=== PATIENT | female | born 1955 | race Hispanic/Latino ===

== ENCOUNTER 2016-08-07 15:04 | Inpatient (IN) | payer MEDICAID ==
[2016-08-07 15:04] VITALS: BMI 27.4
--- NOTE | 2016-08-07 16:36 | C.PDOC ---
History Of Present Illness Patient is a 60 y/o female, with Hx of dizziness, that presents to the ED for evaluation s/p fall. Patient states that she felt dizzy while walking to the bathroom when she suddenly tripped and fell on the carpet. Patient denies any head injury, LOC, chest pain, shortness of breath, nausea, vomiting, extremity weakness/numbness, or any other associated symptoms at this time. Time Seen by Provider: 08/07/16 15:38 Chief Complaint (Nursing): Trauma History Per: Patient History/Exam Limitations: no limitations Onset/Duration Of Symptoms: Hrs Current Symptoms Are (Timing): Still Present Activity At Onset Of Symptoms: Walking Additional History Per: Family Past Medical History Reviewed: Historical Data, Nursing Documentation, Vital Signs Vital Signs: Last Vital Signs Temp 98.0 F 08/07/16 17:43 Pulse 67 08/07/16 17:43 Resp 20 08/07/16 17:43 BP 141/78 08/07/16 17:43 Pulse Ox 95 08/07/16 18:16 - Medical History PMH: Anxiety, CVA, HTN, Hypercholesterolemia, TIA Denies: HIV, Pneumonia, Chronic Kidney Disease - [facility] Procedures APHASIA TREATMENT (02/04/15) GAIT TRAINING/FUNCTIONAL AMBULATION TREATMENT (02/04/15) HOME MANAGEMENT TREATMENT (02/04/15) THERAPEUTIC EXERCISE TREATMENT OF MUSCULOSK LOW BACK/LE (02/04/15) THERAPEUTIC EXERCISE TREATMENT OF MUSCULOSK UP BACK/UE (02/04/15) Family History: States: No Known Family Hx - Social History Hx Alcohol Use: Yes (DENIED 08/07/2016) Hx Substance Use: Yes - Immunization History Hx Tetanus Toxoid Vaccination: No Hx Influenza Vaccination: No Hx Pneumococcal Vaccination: No Review Of Systems Except As Marked, All Systems Reviewed And Found Negative. Constitutional: Negative for: Fever, Chills Cardiovascular: Negative for: Chest Pain Respiratory: Negative for: Shortness of Breath Gastrointestinal: Negative for: Nausea, Vomiting, Abdominal Pain Neurological: Positive for: Dizziness. Negative for: Weakness, Numbness, Headache Physical Exam - Physical Exam Appears: Non-toxic, No Acute Distress Skin: Normal Color, Warm, Dry, No Rash Head: Atraumatic, Normacephalic, No Abrasion Eye(s): bilateral: Normal Inspection, PERRL, EOMI Oral Mucosa: Moist Neck: Normal ROM, No Midline Cervical Tenderness, No Paracervical Tenderness, Supple Chest: Symmetrical, No Tenderness Cardiovascular: Rhythm Regular, No Friction Rub, No Murmur Respiratory: Normal Breath Sounds, No Rales, No Rhonchi, No Wheezing Back: No Vertebral Tenderness, No Paraspinal Tenderness Extremity: Normal ROM, No Tenderness, Capillary Refill (<2 sec.), No Deformity, No Swelling, Other (abrasion to right shoulder) Neurological/Psych: Oriented x3, Normal Speech, Normal Cognition, Normal Motor, Normal Sensation Gait: Steady ED Course And Treatment - Laboratory Results Result Diagrams: 08/07/16 18:26 08/07/16 18:26 ECG: Interpreted By Me, Viewed By Me ECG Rhythm: Sinus Rhythm ECG Interpretation: Normal Rate From EC (bpm) O2 Sat by Pulse Oximetry: 95 (on RA) Pulse Ox Interpretation: Normal - CT Scan/US Head CT Other Rad Studies (CT/US): Read By Radiologist, Radiology Report Reviewed CT/US Interpretation: FINDINGS: HEMORRHAGE: No acute parenchymal, subarachnoid or extra-axial hemorrhage. BRAIN: Re- demonstrated are moderate to fairly significant diffuse/confluent chronic periventricular white matter ischemic changes which extend peripherally into the deep and subcortical white matter both cerebral hemispheres left greater than right. More discrete infarct changes in the left posterior frontoparietal region. Additionally, scattered chronic bilateral basal nuclei lacunar type infarcts. Moderate - significant central volume loss with more localized ex vacuo dilatation of the left frontal horn. Mild vascular calcifications are present. . VENTRICLES: Unremarkable. No hydrocephalus. CALVARIUM: Unremarkable. PARANASAL SINUSES: Moderate mucosal thickening left maxillary antrum. There is also mild mucosal thickening noted within several ethmoid air cells on the left side extending slightly into the inferior aspect of the frontal sinus. MASTOID AIR CELLS: Unremarkable as visualized. No inflammatory changes. OTHER FINDINGS: None. IMPRESSION: No acute intracranial hemorrhage. Extensive chronic white matter ischemic changes with more discrete chronic appearing infarcts left the posterior frontoparietal region. In addition, there are the multiple chronic bilateral basal nuclei lacunar type infarcts as described. Moderate to significant central volume loss with more localized ex vacuo dilatation left frontal horn. Progress Note: Head CT ordered and reviewed. Patient was treated with Antivert PO in the ER. On reassessment, patient is resting comfortably, denies any neurologic complaints. Pt is ambulating well, and is tolerating PO. Patient will be discharged home and is instructed to follow up with physician/clinic in 1-2 days. Medical Decision Making Medical Decision Making: On re-exam, the patient reports mild improvement, but when she tried to walk she felt dizzy and could not walk. On second re-exam, the patient still cannot walk and has unsteady gait. The case was discussed with Dr. Horta who agrees to admit the patient. Disposition - Disposition Disposition: HOSPITALIZED Disposition Time: 19:07 Condition: FAIR - POA Present On Arrival: None - Clinical Impression Clinical Impression: Dizziness, Unsteady gait - PA / ROLLER INSPECTOR / Resident Statement MD/DO has reviewed & agrees with the documentation as recorded. - Scribe Statement The provider has reviewed the documentation as recorded by the Senthilibdione Mcnally All medical record entries made by the Radha were at my direction and personally dictated by me. I have reviewed the chart and agree that the record accurately reflects my personal performance of the history, physical exam, medical decision making, and the department course for this patient. I have also personally directed, reviewed, and agree with the discharge instructions and disposition.
--- NOTE | 2016-08-07 17:36 | CT ---
PROCEDURE: CT HEAD WITHOUT CONTRAST. HISTORY: head trauma COMPARISON: Comparison made with CT scan brain dated 06/05/16 TECHNIQUE: Axial computed tomography images were obtained through the head/brain without intravenous contrast. Radiation dose: Total exam DLP = 1049.93 mGy-cm. This CT exam was performed using one or more of the following dose reduction techniques: Automated exposure control, adjustment of the mA and/or kV according to patient size, and/or use of iterative reconstruction technique. FINDINGS: HEMORRHAGE: No acute parenchymal, subarachnoid or extra-axial hemorrhage. BRAIN: Re- demonstrated are moderate to fairly significant diffuse/confluent chronic periventricular white matter ischemic changes which extend peripherally into the deep and subcortical white matter both cerebral hemispheres left greater than right. More discrete infarct changes in the left posterior frontoparietal region. Additionally, scattered chronic bilateral basal nuclei lacunar type infarcts. Moderate -significant central volume loss with more localized ex vacuo dilatation of the left frontal horn. Mild vascular calcifications are present. . VENTRICLES: Unremarkable. No hydrocephalus. CALVARIUM: Unremarkable. PARANASAL SINUSES: Moderate mucosal thickening left maxillary antrum. There is also mild mucosal thickening noted within several ethmoid air cells on the left side extending slightly into the inferior aspect of the frontal sinus. MASTOID AIR CELLS: Unremarkable as visualized. No inflammatory changes. OTHER FINDINGS: None. IMPRESSION: No acute intracranial hemorrhage. Extensive chronic white matter ischemic changes with more discrete chronic appearing infarcts left the posterior frontoparietal region. In addition, there are the multiple chronic bilateral basal nuclei lacunar type infarcts as described. Moderate to significant central volume loss with more localized ex vacuo dilatation left frontal horn.
[2016-08-07 18:29] LABS: BASO # 0.1 K/uL (0.0-0.2); BASO % 0.5 % (0.0-2.0); EOS # 0.1 K/uL (0.0-0.7); EOS % 0.5 % (0.0-4.0); HEMATOCRIT 36.3 % (34.0-47.0); LYMPH # 1.8 K/uL (1.0-4.3); LYMPH % 15.9 % (20.0-40.0); MEAN CELL VOLUME 93.4 fL (81.0-99.0); MEAN CORPUSCULAR HEMOGLOBIN 30.5 pg (27.0-31.0); MEAN CORPUSCULAR HGB CONC 32.6 g/dL (33.0-37.0); MEAN PLATELET VOLUME 8.6 fL (7.2-11.7); MONO # 0.5 K/uL (0.0-0.8); MONO % 4.2 % (0.0-10.0); RED CELL DISTRIBUTION WIDTH 15.4 % (11.5-14.5); WHITE BLOOD COUNT 11.5 K/uL (4.8-10.8)
[2016-08-07 18:38] LABS: CHLORIDE 104 mmol/L (98-107); POTASSIUM 4.3 mmol/L (3.6-5.2); SODIUM 140 mmol/L (132-148)
[2016-08-07 18:40] LABS: GFR AFRICAN-AMERICAN > 60
[2016-08-07 18:41] LABS: ALB/GLOB RATIO 0.9 (1.0-2.1); ALKALINE PHOSPHATASE 86 U/L (38-126); ALT/SGPT 24 U/L (9-52); AST/SGOT 47 U/L (14-36); BILIRUBIN,TOTAL 0.3 mg/dL (0.2-1.3); BLOOD UREA NITROGEN 19 mg/dL (7-17); CARBON DIOXIDE 25 mmol/L (22-30); GLUCOSE,RANDOM 87 mg/dL (65-105); TOTAL PROTEIN 8.1 g/dL (6.3-8.3)
[2016-08-07 18:42] LABS: CALCIUM 8.6 mg/dl (8.6-10.4)
[2016-08-08 00:04] VITALS: RESP 20
--- NOTE | 2016-08-08 03:18 | CP.PCM.CON ---
History of Present Illness - History of Present Illness History of Present Illness: Syncope/Near-Sync/Dizziness Patient is a 60 y/o female, with Hx of dizziness, that presents to the ED for evaluation s/p fall. Patient states that she felt dizzy while walking to the bathroom when she suddenly tripped and fell on the carpet. Patient denies any head injury, LOC, chest pain, shortness of breath, nausea , vomiting, extremity weakness/numbness or any other associated symptoms at this time. She has a long history of Low Back pain and difficulty walking. She has no children and is happily . She feels depressed and is forgetful. 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 She has an Old Cva which affected her ability to walk. Time Seen by Provider: 08/07/16 15:38 Chief Complaint (Nursing): Trauma History Per: Patient History/Exam Limitations: no limitations Onset/Duration Of Symptoms: Hrs Current Symptoms Are (Timing): Still Present Activity At Onset Of Symptoms: Walking Additional History Per: Family Last Vital Signs Temp 98.0 F 08/07/16 17:43 Pulse 67 08/07/16 17:43 Resp 20 08/07/16 17:43 BP 141/78 08/07/16 17:43 Pulse Ox 95 08/07/16 18:16 - Medical History PMH: Anxiety, CVA, HTN, Hypercholesterolemia, TIA Denies: HIV, Pneumonia, Chronic Kidney Disease - [facility] Procedures APHASIA TREATMENT (02/04/15) GAIT TRAINING/FUNCTIONAL AMBULATION TREATMENT (02/04/15) HOME MANAGEMENT TREATMENT (02/04/15) THERAPEUTIC EXERCISE TREATMENT OF MUSCULOSK LOW BACK/LE (02/04/15) THERAPEUTIC EXERCISE TREATMENT OF MUSCULOSK UP BACK/UE (02/04/15) Family History: States: No Known Family Hx - Social History Hx Alcohol Use: Yes (DENIED 08/07/2016) Hx Substance Use: Yes - Immunization History Hx Tetanus Toxoid Vaccination: No Hx Influenza Vaccination: No Hx Pneumococcal Vaccination: No Review Of Systems Except As Marked, All Systems Reviewed And Found Negative. Constitutional: Negative for: Fever, Chills Cardiovascular: Negative for: Chest Pain Respiratory: Negative for: Shortness of Breath Gastrointestinal: Negative for: Nausea, Vomiting, Abdominal Pain Neurological: Positive for: Dizziness. Negative for: Weakness, Numbness, Headache ECG Rhythm: Sinus Rhythm ECG Interpretation: Normal Rate From EC (bpm) O2 Sat by Pulse Oximetry: 95 (on RA) Pulse Ox Interpretation: Normal IMPRESSION of CT Brain: No acute intracranial hemorrhage. Extensive chronic white matter ischemic changes with more discrete chronic appearing infarcts left the posterior frontoparietal region. In addition, there are the multiple chronic bilateral basal nuclei lacunar type infarcts as described. Moderate to significant central volume loss with more localized ex vacuo dilatation left frontal horn. On re-exam, the patient reports mild improvement, but when she tried to walk she felt dizzy and could not walk. On second re-exam, the patient still cannot walk and has unsteady gait. The case was discussed with Dr. Horta who agrees to admit the patient. Clinical Impression: Dizziness, Unsteady gait Past Patient History - Infectious Disease Hx of Infectious Diseases: None - Past Medical History & Family History Past Medical History?: Yes - Past Social History Smoking Status: Current Some Days Smoker - CARDIAC Hx Hypercholesterolemia: Yes Hx Hypertension: Yes - PULMONARY Hx Pneumonia: No - NEUROLOGICAL Hx Transient Ischemic Attacks (TIA): Yes - HEENT Hx HEENT Problems: No - RENAL Hx Chronic Kidney Disease: No - ENDOCRINE/METABOLIC Hx Endocrine Disorders: No - HEMATOLOGICAL/ONCOLOGICAL Hx Human Immunodeficiency Virus (HIV): No - INTEGUMENTARY Other/Comment: Lt. benign cheek cyst - MUSCULOSKELETAL/RHEUMATOLOGICAL Hx Falls: No - GASTROINTESTINAL Hx Gastrointestinal Disorders: No - GENITOURINARY/GYNECOLOGICAL Hx Genitourinary Disorders: No - PSYCHIATRIC Hx Anxiety: Yes Hx Substance Use: Yes - SURGICAL HISTORY Hx Surgeries: Yes Other/Comment: LEFT SIDE FACE CYST REMOVED THIS YEAR - ANESTHESIA Hx Anesthesia: Yes Hx Anesthesia Reactions: No (unknown) Hx Malignant Hyperthermia: No Meds Allergies/Adverse Reactions: Allergies Allergy/AdvReac Type Severity Reaction Status Date / Time No Known Allergies Allergy Verified 04/04/16 15:31 - Medications Medications: Current Medications Aspirin (Ecotrin) 81 mg PO DAILY [facility] Clopidogrel Bisulfate (Plavix) 75 mg PO DAILY [facility] Escitalopram Oxalate (Lexapro) 10 mg PO DAILY [facility] Famotidine (Pepcid) 20 mg PO DAILY [facility] Gabapentin (Neurontin) 800 mg PO BID [facility] Hydralazine HCl (Apresoline) 25 mg PO Q8H [facility] Lamotrigine (Lamictal) 50 mg PO BID [facility] Lisinopril (Zestril) 20 mg PO DAILY [facility] Methadone HCl (Methadone) 30 mg PO DAILY [facility] Methadone HCl (Methadose) 40 mg PO DAILY [facility] Multivitamins/Minerals (Therapeutic-M Tab) 1 tab PO DAILY [facility] Pneumococcal Polyvalent Vaccine (Pneumovax 23 Vaccine) 0.5 ml IM .ONCE ONE Stop: 08/09/16 10:01 Rosuvastatin Calcium (Crestor) 2.5 mg PO HS [facility] Trazodone HCl (Desyrel) 100 mg PO DAILY [facility] Physical Exam - Neurological Exam Additional comments: Mental Status: Awake Alert , Confused, delirious thinks we are in 2011 speech is non fluent non coherent.memory is affected by her confysion and her delirium. Cranial nerves II to XII: No deficits No facial Asymmetry Normal EOM Pupils equal reactive central Tongue Motor: Normal Tone Power is reduced in the Right Lower Extremity in knee flexion extension DTR 0/4 Toes are down going Positive Lassegue test more affected on the Right Sensory: Pain in the Lower back Cerebellar: Normal FNT unable to stand or walk due to Pain and Tenderness of her back and lages and thighs, Right side is more affected. Stature and Gait: Unable to stand. Results - Vital Signs Recent Vital Signs: Last Vital Signs Temp 98.8 F 08/07/16 23:59 Pulse 60 08/07/16 23:59 Resp 20 08/07/16 23:59 BP 132/79 08/07/16 23:59 Pulse Ox 101 H 08/07/16 23:59 - Labs Result Diagrams: 08/07/16 18:26 08/07/16 18:26 Assessment & Plan (1) CVA (cerebrovascular accident) Status: Acute Priority: Medium (2) Prophylactic measure Status: Acute Priority: Medium (3) Depression Status: Acute (4) TIA (transient ischemic attack) Status: Acute (5) Hemiparesis Status: Acute (6) Dizziness Status: Acute (7) Unsteady gait Assessment and Plan: Lumbar radiculopathy, Right Lower Extremity is much more involved. Status: Acute (8) Seizures Assessment and Plan: On Lamictal 50 mg BID Status: Suspected (9) Lumbar radiculopathy Assessment and Plan: Positive lassegue Right side is 45 degree left is 60 degrees Status: Chronic
[2016-08-08 07:42] LABS: URIC ACID 6.8 mg/dL (2.2-7.5)
[2016-08-08 08:05] LABS: THYROID STIMULATING HORMONE 0.67 mIU/L (0.46-4.68)
--- NOTE | 2016-08-08 08:14 | RAD ---
PROCEDURE: CHEST RADIOGRAPH, 1 VIEW HISTORY: dizziness COMPARISON: 06/05/2016 FINDINGS: LUNGS: Mild increased interstitial lung markings which may represent mild edema. Clinical correlation. PLEURA: No pneumothorax or pleural fluid seen. CARDIOVASCULAR: Normal. OSSEOUS STRUCTURES: No significant abnormalities. VISUALIZED UPPER ABDOMEN: Normal. OTHER FINDINGS: None. IMPRESSION: Mild increased interstitial lung markings which may represent mild edema. Clinical correlation.
[2016-08-08] MEDS: Methadone 40 mg Tab PO SCH (10:43)
[2016-08-08] MEDS: Multivitamin With Minerals Tab PO SCH (10:43)
[2016-08-08 17:16] LABS: RAPID PLASMA REAGIN NONREACTIVE (NONREACTIVE)
--- NOTE | 2016-08-08 18:45 | HP ---
HISTORY OF PRESENT ILLNESS: The patient is seen today 08/08/2016. She is a 60-year-old fe male with history of multiple medical problems including cerebrovascular accident. The patient prese nted to Emergency Room after history of presyncope/syncope post micturition. The patient stated that she was coming out of the bathroom, she blacked out and she does not recall until she found herself on the floor. The patient had similar episodes before that was thought to be post micturition syncop e. The patient also has been on anti-seizure medications and there are no symptoms suggestive of a s eizure. REVIEW OF SYSTEMS: Other review of systems is negative. ALLERGIES: No known allergy. HOME MEDICATIONS: Include hydralazine 25 mg 3 times a day, Crestor 5 mg daily, trazodone 100 mg noel y, aspirin 81 mg daily, Lamictal 50 mg twice a day, Lexapro 10 mg daily, methadone 70 mg daily, Neuro ntin 800 mg twice a day, Pepcid 20 mg daily, Plavix 75 mg daily, lisinopril 20 mg daily. SOCIAL HISTORY: Ex-smoker. No ETOH or substance abuse. PAST MEDICAL HISTORY: CVA, hypertension, history of heroin abuse, currently on methadone. PHYSICAL EXAMINATION: GENERAL: The patient is in bed, comfortable at the time of this examination. VITAL SIGNS: Blood pressure 103/68, temperature 98.3, respiratory rate 20, and pulse is 62. HEENT: Pupils equal, reactive to light. Normal-appearing mucosa of the conjunctivae, oropharyngeal and nasal membrane mucosa. NECK: Supple, no JVD, no carotid bruit, no lymph node, no thyromegaly. CHEST AND LUNGS: Bilateral symmetrical expansion, good air exchange, no rales, no rhonchi. CARDIOVASCULAR: PMI not localized. S1, S2. No additional sounds. ABDOMEN: Normoactive bowel sounds, no tenderness, no organomegaly, no masses. EXTREMITIES: No cyanosis, no clubbing, no edema. CENTRAL NERVOUS SYSTEM: Alert, awake, oriented x 2. The patient has left-sided hemiparesis. ASSESSMENT: 1. Presyncope/syncope 2. History of cerebrovascular accident. 3. Hypertension. 4. History of heroin abuse and currently on methadone. PLAN: Resume the patient's home medications, neuro check every 4 hours, neurology consultation and soy escoto recommendations, and fall precautions, physical therapy. Ankur Horta MD cc: [id number] TT: 08/08/2016 18:44:19 mn
[2016-08-08] MEDS: Rosuvastatin Calcium 2.5 mg Tab PO SCH (21:20)
[2016-08-09] MEDS ORDERED: Pneumococcal 23-Valent Vaccine IM ONE (10:00)
[2016-08-09] MEDS: Methadone 40 mg Tab PO SCH (11:01)
[2016-08-09] MEDS: Multivitamin With Minerals Tab PO SCH (11:04)
[2016-08-09] MEDS: Rosuvastatin Calcium 2.5 mg Tab PO SCH (21:12)
--- NOTE | 2016-08-09 22:05 | CP.PCM.PN ---
Subjective - Date & Time of Evaluation Date of Evaluation: 08/09/16 Time of Evaluation: 20:15 - Subjective Subjective: No change in her condition. She is unable to stand or walk. Objective - Vital Signs/Intake and Output Vital Signs (last 24 hours): Temp Pulse Resp BP Pulse Ox 98.6 F 62 20 139/78 96 08/09/16 15:00 08/09/16 15:00 08/09/16 15:00 08/09/16 15:00 08/09/16 15:00 - Medications Medications: Current Medications Aspirin (Ecotrin) 81 mg PO DAILY [facility] Last Admin: 08/09/16 11:04 Dose: 81 mg Calcium Carbonate (Oscal) 500 mg PO BID [facility] Clopidogrel Bisulfate (Plavix) 75 mg PO DAILY [facility] Last Admin: 08/09/16 11:03 Dose: 75 mg Ergocalciferol (Drisdol 50,000 Intl Units Cap) 1 cap PO Q7D [facility] Escitalopram Oxalate (Lexapro) 10 mg PO DAILY [facility] Last Admin: 08/09/16 11:03 Dose: 10 mg Famotidine (Pepcid) 20 mg PO DAILY [facility] Last Admin: 08/09/16 11:35 Dose: 20 mg Gabapentin (Neurontin) 800 mg PO BID [facility] Last Admin: 08/09/16 17:53 Dose: 800 mg Hydralazine HCl (Apresoline) 25 mg PO Q8H [facility] Last Admin: 08/09/16 21:11 Dose: 25 mg Lamotrigine (Lamictal) 50 mg PO BID [facility] Last Admin: 08/09/16 17:53 Dose: 50 mg Lisinopril (Zestril) 20 mg PO DAILY [facility] Last Admin: 08/09/16 11:35 Dose: 20 mg Methadone HCl (Methadone) 30 mg PO DAILY [facility] Last Admin: 08/09/16 11:02 Dose: 30 mg Methadone HCl (Methadose) 40 mg PO DAILY [facility] Last Admin: 08/09/16 11:01 Dose: 40 mg Multivitamins/Minerals (Therapeutic-M Tab) 1 tab PO DAILY [facility] Last Admin: 08/09/16 11:04 Dose: 1 tab Rosuvastatin Calcium (Crestor) 2.5 mg PO HS [facility] Last Admin: 08/09/16 21:12 Dose: 2.5 mg Trazodone HCl (Desyrel) 100 mg PO DAILY [facility] Last Admin: 08/09/16 11:04 Dose: 100 mg Assessment and Plan (1) CVA (cerebrovascular accident) Status: Acute (2) Prophylactic measure Status: Acute (3) Depression Status: Acute (4) TIA (transient ischemic attack) Status: Acute (5) Hemiparesis Status: Acute (6) Dizziness Status: Acute (7) Unsteady gait Status: Acute (8) Seizures Status: Suspected (9) Lumbar radiculopathy Status: Chronic
--- NOTE | 2016-08-09 23:51 | PN ---
DATE: 08/09/2016 SUBJECTIVE: The patient is seen today 08/09/2016. She is not in any cardiopulmonary distress. PHYSICAL EXAMINATION VITAL SIGNS: Blood pressure 139/78, temperature 98.6, respiratory rate 20, and pulse 62. HEENT: Pupils equal, reactive to light. Normal-appearing mucosa of the conjunctivae, oropharyngeal and nasal membrane mucosa. NECK: Supple, no JVD, no carotid bruit, no lymph node, no thyromegaly. CHEST AND LUNGS: Bilateral symmetrical expansion, good air exchange, no rales, no rhonchi. CARDIOVASCULAR: PMI not localized. S1, S2. No additional sounds. ABDOMEN: Normoactive bowel sounds, no tenderness, no organomegaly, no masses. EXTREMITIES: No cyanosis, no clubbing, no edema. CENTRAL NERVOUS SYSTEM: Alert, awake, oriented x 2. The patient has right- sided hemiplegia. ASSESSMENT: 1. Fall with possible post-micturition syncope. 2. History of seizure 3. Hypertension. PLAN: Continue current medications and physical therapy and plan for discharge to a subacute rehab. The patient was cleared by neurology. [facility] Kaylie Horta MD cc: [id number] TT: 08/09/2016 23:51:16 Confirmation # [id number] Dictation # [id number] marlys BEYER
[2016-08-10] MEDS ORDERED: Ergocalciferol 50,000 Intl Units Cap PO SCH (09:00)
[2016-08-10] MEDS: Methadone 40 mg Tab PO SCH (09:57)
[2016-08-10] MEDS: Multivitamin With Minerals Tab PO SCH (09:58)
--- NOTE | 2016-08-10 13:34 | MRI ---
PROCEDURE: MRI BRAIN WITHOUT CONTRAST HISTORY: R/O CVA, old H/O Seizures COMPARISON: Comparison made with prior CT scan brain 08/07/2016 TECHNIQUE: Multiplanar, multisequence MR images of the brain were obtained without intravenous contrast enhancement. FINDINGS: HEMORRHAGE: No acute intracranial hemorrhage. No evidence of hemosiderin deposition identified on gradient echo weighted sequence DWI: No evidence of an acute or early subacute infarction. BRAIN PARENCHYMA: Moderate to significant chronic white matter ischemic changes extending from the periventricular into the deep and subcortical regions bilaterally again noted. Multiple more discrete lacunar-type infarcts scattered about deep and subcortical white matter as well as both superior basal ganglia and brainstem. Tiny left cerebellar chronic lacune. None of the changes appear demonstrate restricted diffusion No mass. VENTRICLES: Moderate -significant central volume loss CRANIUM: Unremarkable. ORBITS: Grossly unremarkable. PARANASAL SINUSES/MASTOIDS: Mucosal thickening in the left maxillary antrum and several left-sided ethmoid air cells extending superiorly into the frontal sinus. VASCULAR SYSTEM: Visualized major vascular flow voids at skull base are patent. OTHER FINDINGS: None. IMPRESSION: No acute intracranial hemorrhage or infarct. Moderate to significant chronic white matter ischemic changes with scattered superior basal ganglia/ coronal radiata and brainstem lacunar type infarcts. Tiny chronic left cerebellar lacune Moderate to significant central volume loss See above discussion for additional findings and details
--- NOTE | 2016-08-10 14:03 | MRI ---
PROCEDURE: MR LUMBAR SPINE WITHOUT CONTRAST HISTORY: Radiculopathy COMPARISON: None available. TECHNIQUE: Multiecho multiplanar sequences were performed through the lumbar spine without the use of intravenous contrast. Study is degraded by motion artifact FINDINGS: Normal lumbar lordosis though there is mild dextroscoliosis centered at the L2 level. . No acute compression fractures. Mild multilevel fish-mouth endplate deformities. There is also mild edema (type 1 discogenic sclerosis) the within the mid and right parasagittal L4-L5 endplates marrow signal otherwise unremarkable. Conus medullaris unremarkable at the level of T12-L1 level. Paraspinal soft tissues are unremarkable. T12-L1: No disc herniation, spinal canal stenosis or neural foraminal narrowing despite mild facet arthropathy. L1-2: No disc herniation,. No central stenosis. Facet joints are mildly hypertrophic no evidence of neural foraminal narrowing. L2-3: There is a small bilateral foraminal disc bulges the left greater than right. . Minor anterior disc space narrowing. Spinal canal stenosis. Facet joints also mildly hypertrophic. Mild right foraminal narrowing L3-4: Small bilateral proximal foraminal disc bulging. Central canal appears adequate. Facet joints are quite hypertrophic right greater than left. Exit foramina appears slightly narrowed. L4-5: Disc desiccation, disc space narrowing with endplate edema mentioned above. Small broad-based disc bulge with a tiny right parasagittal herniation component that indents the ventral surface of the thecal sac. Central canal is marginal to adequate. Facets are hypertrophic. The exit foramina are mildly narrowed bilaterally. L5-S1: Disc desiccation with mild posterior disc space narrowing. Small circumferential disc bulge with a more localized a prominent focal component in the left parasagittal posterior margin of disc reaches the ventral surface of thecal sac. Overall central canal is adequate. Facets are hypertrophic. Exit foramina are mildly narrowed bilaterally. OTHER FINDINGS: None. IMPRESSION: Limited motion degraded study. Multilevel degenerative spondylosis most notably affecting L4-L5 level as detailed above. There is also a mild dextroscoliosis
[2016-08-10] MEDS: Rosuvastatin Calcium 2.5 mg Tab PO SCH (21:21)
--- NOTE | 2016-08-10 22:56 | PN ---
DATE: 08/10/2016 SUBJECTIVE: The patient is seen today, 08/10/2016. There is no symptom of loss of consciousness or seizures. PHYSICAL EXAMINATION Seizures: VITAL SIGNS: Blood pressure is 142/90, temperature 98.1, respiratory rate 20, and pulse 70. HEENT: Pupils equal, reactive to light. Normal-appearing mucosa of the conjunctivae, oropharyngeal and nasal membrane mucosa. NECK: Supple, no JVD, no carotid bruit, no lymph node, no thyromegaly. CHEST AND LUNGS: Bilateral symmetrical expansion, good air exchange, no rales, no rhonchi. CARDIOVASCULAR: PMI not localized. S1, S2. No additional sounds. ABDOMEN: Normoactive bowel sounds, no tenderness, no organomegaly, no masses. EXTREMITIES: No cyanosis, no clubbing, no edema. CENTRAL NERVOUS SYSTEM: Alert, awake, oriented x 2. ASSESSMENT: 1. Fall with possible post-micturition syncope. 2. History of seizure disorder. 3. Cerebrovascular accident. PLAN: Continue current medications and follow neurology recommendations and, after physical therapy recommendation, patient is for subacute rehabilitation discharge. [facility] Kaylie Horta MD cc: [id number] TT: 08/10/2016 22:55:58 Confirmation # [id number] Dictation # [id number] marlys BEYER
--- NOTE | 2016-08-10 23:24 | CP.PCM.PN ---
Subjective - Date & Time of Evaluation Date of Evaluation: 08/10/16 Time of Evaluation: 19:25 - Subjective Subjective: Dr Pate is taking over and is Considering Sarcoidosis I am signing off Objective - Vital Signs/Intake and Output Vital Signs (last 24 hours): Temp Pulse Resp BP Pulse Ox 98.5 F 62 20 124/80 96 08/10/16 15:00 08/10/16 15:00 08/10/16 15:00 08/10/16 15:00 08/10/16 15:00 Intake and Output: 08/10/16 08/11/16 18:59 06:59 Intake Total 740 Balance 740 - Medications Medications: Current Medications Aspirin (Ecotrin) 81 mg PO DAILY [facility] Last Admin: 08/10/16 09:58 Dose: 81 mg Calcium Carbonate (Oscal) 500 mg PO BID [facility] Last Admin: 08/10/16 17:18 Dose: 500 mg Clopidogrel Bisulfate (Plavix) 75 mg PO DAILY [facility] Last Admin: 08/10/16 09:58 Dose: 75 mg Ergocalciferol (Drisdol 50,000 Intl Units Cap) 1 cap PO Q7D [facility] Last Admin: 08/10/16 09:58 Dose: 1 cap Escitalopram Oxalate (Lexapro) 10 mg PO DAILY [facility] Last Admin: 08/10/16 09:58 Dose: 10 mg Famotidine (Pepcid) 20 mg PO DAILY [facility] Last Admin: 08/10/16 09:57 Dose: 20 mg Gabapentin (Neurontin) 800 mg PO BID [facility] Last Admin: 08/10/16 17:18 Dose: 800 mg Hydralazine HCl (Apresoline) 25 mg PO Q8H [facility] Last Admin: 08/10/16 21:21 Dose: 25 mg Lamotrigine (Lamictal) 50 mg PO BID [facility] Last Admin: 08/10/16 17:18 Dose: 50 mg Lisinopril (Zestril) 20 mg PO DAILY [facility] Last Admin: 08/10/16 10:12 Dose: 20 mg Methadone HCl (Methadone) 30 mg PO DAILY [facility] Last Admin: 08/10/16 09:57 Dose: 30 mg Methadone HCl (Methadose) 40 mg PO DAILY [facility] Last Admin: 08/10/16 09:57 Dose: 40 mg Multivitamins/Minerals (Therapeutic-M Tab) 1 tab PO DAILY [facility] Last Admin: 08/10/16 09:58 Dose: 1 tab Rosuvastatin Calcium (Crestor) 2.5 mg PO HS [facility] Last Admin: 08/10/16 21:21 Dose: 2.5 mg Trazodone HCl (Desyrel) 100 mg PO DAILY [facility] Last Admin: 08/10/16 13:58 Dose: 100 mg Assessment and Plan (1) CVA (cerebrovascular accident) Status: Acute (2) Prophylactic measure Status: Acute (3) Depression Status: Acute (4) TIA (transient ischemic attack) Status: Acute (5) Hemiparesis Status: Acute (6) Dizziness Status: Acute (7) Unsteady gait Status: Acute (8) Seizures Status: Suspected (9) Lumbar radiculopathy Status: Chronic - Assessment and Plan (Free Text) Assessment: A neurosurgical Consult is strongly recommended for her inability to walk or stand after reviewing her MRI LS results.
--- NOTE | 2016-08-11 07:48 | PN ---
DATE: 08/11/2016 NEUROLOGICAL PROBLEM: Status post fall, weakness of her right leg. VITAL SIGNS: Blood pressure 123/69, mean arterial pressure of 87, respiratory rate 18, temperature 9 8.2, pulse is 65 and regular. The patient was seen and evaluated and workup was done by Dr. Belen Daniel over the week. At present she is complaining that right leg is heavy. PHYSICAL EXAMINATION: CRANIAL NERVES: Visual field intact. Pupils react to light. Extraocular movements normal. No nyst agmus. No facial sensory deficit. No facial asymmetry. Hearing is normal. Tongue is midline. Goo d gag. SPINE: No obvious tenderness over the spinal examination. MOTOR: Sensory tremor on outstretched hand with eyes closed. DEEP TENDON REFLEXES: Right biceps 3+, right brachioradialis 3+, right triceps 3+. Left biceps 1+, brachioradialis 1+, triceps 1+. Right knee 3+ with cross adduction of the left knee. The left knee 2+. Right ankle clonus, plantars are upgoing. Left plantars are downgoing. PAIN: There is an asymmetry appreciation of pain and temperature on comparing one side to the other; however, it is not consistent at present. The patient was trying to get out of the bed. It took her more than 5 minutes to get off her bed, an d she was not able to stand and put her weight on her right leg. No sensory level noted. CONCLUSION: Upon reviewing her history and neurologic examination, the patient is presenting with ce rvical myelopathy. This is probably secondary to a space occupying lesion or structural lesion at th e cervical region. Considering her fall, this could be posttraumatic; however, surprising to me ther e is no pain. Her bladder is not involved at present. RECOMMENDATIONS: The patient should get out of the bed. Keep DVT prophylaxis. Fall precaution and physical therapy should be entertained. The patient is scheduled to have MRI of the cervical spine t o rule out any structural pathology. The patient will be followed closely with you. Raj Pate MD cc: [id number] TT: 08/11/2016 07:47:24 Confirmation # [id number] Dictation # [id number] mn
[2016-08-11 08:06] LABS: FREE T4 1.51 ng/dL (0.78-2.19)
[2016-08-11 08:20] LABS: THYROID STIMULATING HORMONE 1.52 mIU/L (0.46-4.68)
[2016-08-11] MEDS: Methadone 40 mg Tab PO SCH (09:32)
[2016-08-11] MEDS: Multivitamin With Minerals Tab PO SCH (09:34)
[2016-08-11] MEDS: Rosuvastatin Calcium 2.5 mg Tab PO SCH (21:38)
[2016-08-11] MEDS: methylPREDNISolone 500 MG in Sodium Chloride 0.9% 100 ML IVPB SCH (21:48)
--- NOTE | 2016-08-12 07:47 | PN ---
DATE: 08/12/2016 NEUROLOGICAL PROBLEM: Cervical myelopathy, subacute process manifesting with spastic hemiparesis on her right side. VITAL SIGNS: Blood pressure 135/77, mean arterial pressure of 96, respiratory rate 16, temperature 9 8 degrees Fahrenheit, pulse rate 59, regular. The patient did have MRI of the cervical spine as requested. The patient does have chronic degenerat lizbeth process with a herniated disk and compression at C4-C5 level and C5-C6 level. 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 She does not show any compromising respiratory dysfunction from this problem. No bowel or bladder in continence or dysfunction from this myelopathy picture. The patient was given high dose of methylprednisolone, which can be continued for 3 days to assess he r symptoms and improvement. The patient also requested to have physical therapy with fall precaution . The current examination is not changed to compare with my previous exam. However, she admits she fee ls somewhat different than yesterday. She walked to the bathroom on her own. I do not think she needs any surgical approach for now. We will continue to observe her. We are to keep her on fall precaution to avoid any further progression of her illness. The patient's condition has been well discussed with her. The patient will be followed closely with you. Raj Pate MD cc: [id number] TT: 08/12/2016 07:47:21 Confirmation # [id number] Dictation # [id number] en
--- NOTE | 2016-08-12 08:06 | PN ---
DATE: 08/11/2016 SUBJECTIVE: The patient is seen today, 08/11/2016 . PHYSICAL EXAMINATION: VITAL SIGNS: Blood pressure is 115/79, temperature 98.1, respiratory rate 20, and pulse 67. HEENT: Pupils equal, reactive to light. Normal-appearing mucosa of the conjunctivae, oropharyngeal and nasal membrane mucosa. NECK: Supple, no JVD, no carotid bruit, no lymph node, no thyromegaly. CHEST AND LUNGS: Bilaterally symmetrical expansion, good air exchange, no rales , no rhonchi. CARDIOVASCULAR: PMI not localized. S1, S2. No additional sounds. ABDOMEN: Normoactive bowel sounds, no tenderness, no organomegaly, no masses. EXTREMITIES: No cyanosis, no clubbing, no edema. CENTRAL NERVOUS SYSTEM: Alert, awake, oriented x 2 and has right-sided hemiparesis. ASSESSMENT: 1. Status post fall with questionable syncope, likely post micturition versus with right-sided weakness. 2. Hypertension. 3. History of hepatitis C.. PLAN: I discussed the patient's condition and daily discharge rounds and social organization professor is discovering the options of subacute rehabilitation . Ankur Horta MD cc: [id number] TT: 08/12/2016 00:18:27 Confirmation # [id number] Dictation # [id number] marlys BEYER
--- NOTE | 2016-08-12 10:55 | MRI ---
PROCEDURE: MR CERVICAL SPINE WITHOUT CONTRAST HISTORY: myelopathy - traumatic mass vs hnp COMPARISON: None available. TECHNIQUE: Multiecho multiplanar sequences were performed through the cervical spine without the use of intravenous contrast. FINDINGS: Normal lordotic curvature. Craniocervical junction unremarkable. Vertebral body heights preserved. No marrow signal abnormality. Normal cervical cord. No paraspinal abnormality. C2-C3: No disc herniation, spinal canal stenosis or neural foraminal narrowing. C3-C4: No disc herniation, spinal canal stenosis or neural foraminal narrowing. C4-C5: Moderate degenerative disc changes. There is small central disc bulging seen which resulting in mild spinal narrowing. C5-C6: Moderate to severe degenerative disc changes. There is large osteophyte disc herniation complex associated with mild posterior ligament hypertrophy which resulting in mild to moderate spinal and moderate bilateral neural foramina narrowing C6-C7: Moderate degenerative disc changes. Small osteophyte disc herniation complex associated with mild posterior ligament hypertrophy which resulting in mild spinal and obid-qt-dfgwdvoa right neural foraminal narrowing. C7-T1: Small disc bulging seen without evidence of significant spinal or neural foraminal narrowing. OTHER FINDINGS: None. IMPRESSION: Suboptimal study due to patient's motion. Moderate to mildly severe degenerative changes more prominent at C5-C6. Moderate to large size osteophyte disc herniation complex at C5-C6 associated with irjr-ls-lxcznvzf spinal and moderate to mildly severe bilateral neural foraminal narrowing. Small disc herniation at C6-C7 associated with by posterior ligament hypertrophy which resulting in mild spinal and ssnt-hx-lliieaub right neural foraminal narrowing. Preliminary report was submitted by [facility].
[2016-08-12] MEDS: Multivitamin With Minerals Tab PO SCH (11:13)
[2016-08-12] MEDS: methylPREDNISolone 500 MG in Sodium Chloride 0.9% 100 ML IVPB SCH ×2 (11:15→21:37)
[2016-08-12] MEDS: Methadone 40 mg Tab PO SCH (11:16)
[2016-08-12] MEDS: guaiFENesin 100 mg/5 ml Syrup UD PO PRN (11:21)
[2016-08-12 14:14] LABS: BASO % 0.1 % (0.0-2.0); HEMATOCRIT 34.7 % (34.0-47.0); LYMPH # 0.9 K/uL (1.0-4.3); LYMPH % 8.3 % (20.0-40.0); MEAN CORPUSCULAR HEMOGLOBIN 30.5 pg (27.0-31.0); MEAN CORPUSCULAR HGB CONC 32.4 g/dL (33.0-37.0); MEAN PLATELET VOLUME 9.1 fL (7.2-11.7); MONO # 0.1 K/uL (0.0-0.8); MONO % 1.4 % (0.0-10.0); PLATELET COUNT 245 K/uL (130-400); RED CELL DISTRIBUTION WIDTH 14.8 % (11.5-14.5); WHITE BLOOD COUNT 10.4 K/uL (4.8-10.8)
[2016-08-12 14:27] LABS: CHLORIDE 104 mmol/L (98-107); POTASSIUM 4.2 mmol/L (3.6-5.2); SODIUM 138 mmol/L (132-148)
[2016-08-12 14:30] LABS: BLOOD UREA NITROGEN 23 mg/dL (7-17); CARBON DIOXIDE 21 mmol/L (22-30); GFR AFRICAN-AMERICAN > 60; GLUCOSE,RANDOM 198 mg/dL (65-105)
[2016-08-12 14:31] LABS: CALCIUM 8.7 mg/dl (8.6-10.4)
[2016-08-12 14:48] LABS: NEUTROPHIL 92 % (50-75); TOTAL CELLS COUNTED 100
[2016-08-12] MEDS: Rosuvastatin Calcium 2.5 mg Tab PO SCH (21:40)
--- NOTE | 2016-08-12 23:32 | PN ---
DATE: 08/12/2016 SUBJECTIVE: The patient is seen today, 08/12/2016. There is no change in her clinical status. The patient had an MRI that showed cervical spine degenerative disease with disk herniation. The patient was evaluated by neurology today. PHYSICAL EXAMINATION: VITAL SIGNS: Blood pressure 128/82, temperature 98.1, respiratory rate 20, and pulse is 78. HEENT: Pupils equal, reactive to light. Normal-appearing mucosa of the conjunctivae, oropharyngeal and nasal membrane mucosa. NECK: Supple. No JVD. No carotid bruit. No lymph node. No thyromegaly. CHEST AND LUNGS: Bilateral symmetrical expansion, good air exchange, no rales, no rhonchi. CARDIOVASCULAR: PMI not localized. S1, S2. No additional sounds. ABDOMEN: Normoactive bowel sounds, no tenderness, no organomegaly, no masses. EXTREMITIES: No cyanosis, no clubbing, no edema. CENTRAL NERVOUS SYSTEM: Alert, awake, oriented x 2. The patient has a spastic paralysis of the right side. ASSESSMENT: 1. Status post fall with worsening right-sided weakness with possible myelopathy. 2. Hypertension. 3. History of substance abuse, currently on methadone 70 mg daily. PLAN: 1. Followup neurology recommendation regarding starting of high dose of steroids and see how she will tolerate it. 2. Plan for physical therapy. Ankur Horta MD cc: 167 TT: 08/12/2016 23:31:34 Confirmation # [id number] Dictation # [id number] marlys BEYER
[2016-08-13] MEDS: methylPREDNISolone 500 MG in Sodium Chloride 0.9% 100 ML IVPB SCH ×2 (09:48→21:38)
[2016-08-13] MEDS: Multivitamin With Minerals Tab PO SCH (09:48)
--- NOTE | 2016-08-13 10:24 | PN ---
DATE: 08/13/2016 SUBJECTIVE: The patient is seen today 08/13/2016. The patient was found on the floor overnight and n ot known how she fell. PHYSICAL EXAMINATION: VITAL SIGNS: Blood pressure is 131/84, temperature 98.1, respiratory rate 20, and pulse is 70. HEENT: Pupils equal, reactive to light. Normal-appearing mucosa of the conjunctivae, oropharyngeal and nasal membrane mucosa. NECK: Supple, no JVD, no carotid bruit, no lymph node, no thyromegaly. CHEST AND LUNGS: Bilateral symmetrical expansion, good air exchange, no rales, no rhonchi. CARDIOVASCULAR: PMI not localized. S1, S2. No additional sounds. ABDOMEN: Normoactive bowel sounds, no tenderness, no organomegaly, no masses. EXTREMITIES: No cyanosis, no clubbing, no edema. CENTRAL NERVOUS SYSTEM: Alert, awake, oriented x 2 and the patient has with right-sided spastic fabiana paresis. ASSESSMENT: Frequent falls with right-sided weakness and possible myelopathy and cervical myelopathy . PLAN: Follow neurology recommendations and the patient is currently on high dose steroids. Continue current medications and fall precautions. Ankur Horta MD cc: 167 TT: 08/13/2016 10:23:14 Confirmation # [id number] Dictation # [id number] jn
[2016-08-13] MEDS: (Novolog) Insulin Aspart, Recombinant 100 u/ml 10 ml vial SC SCH ×3 (13:29→21:38)
[2016-08-13] MEDS: guaiFENesin 100 mg/5 ml Syrup UD PO PRN (21:35)
[2016-08-13] MEDS: Rosuvastatin Calcium 2.5 mg Tab PO SCH (21:35)
[2016-08-14] MEDS: (Novolog) Insulin Aspart, Recombinant 100 u/ml 10 ml vial SC SCH ×4 (07:51→21:27)
[2016-08-14] MEDS: guaiFENesin 100 mg/5 ml Syrup UD PO PRN ×2 (09:01→21:21)
[2016-08-14] MEDS: Multivitamin With Minerals Tab PO SCH (09:01)
--- NOTE | 2016-08-14 11:23 | EEG ---
DATE: 08/11/2016 This is a 16-channel electroencephalogram of awake and drowsy adult. During the study, photic stimul ation was performed. Hyperventilation was not performed. The resting electroencephalogram consists of 40-50 microvolt, 7-9 Hz theta mixed with low alpha activ ity seen at parietal and occipital leads. Anteriorly fast activity superimposed with 2-3 Hz delta ac tivity seen at frontal and central leads. The photic stimulation did not evoke driving response note d at 2-20 Hz. IMPRESSION: This is a normal electroencephalogram of awake and drowsy adult. During the study, neit her electroencephalographic paroxysmal activities nor focal slowing noted. Raj Pate MD cc: [id number] TT: 08/14/2016 11:23:03 Confirmation # [id number] Dictation # [id number] en
[2016-08-14] MEDS: methylPREDNISolone 500 MG in Sodium Chloride 0.9% 100 ML IVPB SCH ×2 (11:27→21:10)
[2016-08-14] MEDS: Rosuvastatin Calcium 2.5 mg Tab PO SCH (21:09)
[2016-08-15 00:07] VITALS: O2SAT 96
[2016-08-15] MEDS: (Novolog) Insulin Aspart, Recombinant 100 u/ml 10 ml vial SC SCH ×2 (07:38→12:05)
[2016-08-15 08:25] VITALS: BP 149/85; PULSE 66; TEMP 97.5
[2016-08-15] MEDS: Multivitamin With Minerals Tab PO SCH (10:43)
--- NOTE | 2016-08-15 13:05 | CP.PCM.PN ---
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 MOSES, CLEARED FOR DISCHARGE HOME TODAY FROM [facility] AND F /U WITH HIS OFFICE IN 1-[address] SPARKS PT STABLE FOR DISCHARGE HOME TODAY AND F/U WITH HIS OFFICE IN 1 WEEK DISCHARGE PLAN DISCUSSED WITH PATIENT AND AT BED SIDE , WHO UNDERSTANDS AND AGREES WITH PLAN PATIENT REFUSED THE NEEDS FOR ANY RX FOR MEDICATIONS Objective - Vital Signs/Intake and Output Vital Signs (last 24 hours): Temp Pulse Resp BP Pulse Ox 97.5 F L 66 20 149/85 96 08/15/16 08:00 08/15/16 08:00 08/15/16 08:00 08/15/16 08:00 08/15/16 08:00 Intake and Output: 08/15/16 08/15/16 06:59 18:59 Intake Total 550 Balance 550 - Medications Medications: Current Medications Aspirin (Ecotrin) 81 mg PO DAILY [facility] Last Admin: 08/15/16 10:43 Dose: 81 mg Calcium Carbonate (Oscal) 500 mg PO BID [facility] Last Admin: 08/15/16 11:52 Dose: 500 mg Clopidogrel Bisulfate (Plavix) 75 mg PO DAILY [facility] Last Admin: 08/15/16 10:37 Dose: 75 mg Ergocalciferol (Drisdol 50,000 Intl Units Cap) 1 cap PO Q7D [facility] Last Admin: 08/10/16 09:58 Dose: 1 cap Famotidine (Pepcid) 20 mg PO DAILY [facility] Last Admin: 08/15/16 10:43 Dose: 20 mg Gabapentin (Neurontin) 800 mg PO BID [facility] Last Admin: 08/15/16 10:37 Dose: 800 mg Guaifenesin (Robitussin) 100 mg PO Q4H PRN PRN Reason: Cough Last Admin: 08/14/16 21:21 Dose: 100 mg Hydralazine HCl (Apresoline) 25 mg PO Q8H [facility] Last Admin: 08/15/16 06:34 Dose: 25 mg Insulin Aspart (Novolog) 0 unit SC ACHS [facility] PRN Reason: Protocol Last Admin: 08/15/16 12:05 Dose: 4 unit Lisinopril (Zestril) 20 mg PO DAILY [facility] Last Admin: 08/15/16 10:37 Dose: 20 mg Methadone HCl (Methadone) 70 mg PO DAILY [facility] Last Admin: 08/15/16 10:39 Dose: 70 mg Multivitamins/Minerals (Therapeutic-M Tab) 1 tab PO DAILY [facility] Last Admin: 08/15/16 10:43 Dose: 1 tab Rosuvastatin Calcium (Crestor) 2.5 mg PO [facility] Last Admin: 08/14/16 21:09 Dose: 2.5 mg Trazodone HCl (Desyrel) 100 mg PO [facility] Last Admin: 08/14/16 21:09 Dose: 100 mg - Labs Labs: 08/12/16 14:04 08/12/16 14:04
--- NOTE | 2016-08-15 22:19 | DS ---
REASON FOR ADMISSION: This is a 60-year-old female with multiple medical problems who was admitted after a fall. COURSE OF HOSPITALIZATION: The patient was admitted to the medical floor and she had neuro check every 4 hours. The patient has had a neurology consultation done by Dr. Pate. The patient was given pulse steroids therapy treating possible myelopathy for surgical degenerative spine disease. This patient's symptoms improved and the patient was discharged home. she is to continue her current medications. 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 PLAN: Will follow up with neurology and the patient was discharged to continue her current medications and to try to work with the methadone program to taper off the dose of methadone. Erin Kaylie Horta MD cc: 167 TT: 08/15/2016 22:18:09 narcisa BEYER
--- NOTE | 2016-08-22 21:35 | DS ---
REASON FOR ADMISSION: This is a 60-year-old female with history of multiple medical proble ms, who was admitted for frequent falls. COURSE OF HOSPITALIZATION: The patient was admitted to medical floor, and she had a neurology consul tation done by Dr. Pate. The patient was started on physical therapy, and she was also given pulse steroid therapy for of cervical myelopathy. The patient's gait was improving, and the patient was discharged home in a stable condition to follow with neurology, Dr. Pate and with Dr. Horta. FINAL DIAGNOSES: Frequent falls, history of cerebrovascular accident with right-sided weakness, cerv ical myelopathy, history of heroin abuse on methadone. Ankur Horta MD cc: 167 TT: 08/22/2016 21:34:58 nj
--- NOTE | 2016-10-04 12:28 | CARD ---
APPROVED REPORT EKG Measurement Heart [id number] <Conclusion> Sinus rhythm with 1st degree AV block Otherwise normal ECG
== END 2016-08-15 13:30 | disposition home or self-care (01) | DRG 243 ==
LOC: C.ER 15:04 → C.9E 19:08 → C.3T 19:48 → OBSVTOIN 08-09 16:59 → C.3T 08-13 22:00
PROVIDERS: ADMIT Internal Medicine; ATTEND Internal Medicine
DX: M50.023 Cervical disc disorder at C6-C7 level with myelopathy (principal); G81.11 Spastic hemiplegia affecting right dominant side; I10 Essential (primary) hypertension; M47.16 Other spondylosis with myelopathy, lumbar region; D86.9 Sarcoidosis, unspecified; B19.20 Unspecified viral hepatitis C without hepatic coma; G40.909 Epilepsy, unspecified, not intractable, without status epilepticus

== ENCOUNTER 2017-02-06 07:22 | Day surgery (SDC) | payer MEDICAID ==
[2017-02-06] MEDS ORDERED: Propofol 10 mg/ml Inj (20 ML) ONE ×2 (10:11→10:42)
[2017-02-06 11:26] VITALS: TEMP 98
[2017-02-06 11:29] VITALS: O2SAT 97
[2017-02-06 11:30] VITALS: BP 159/72; PULSE 51; RESP 12
== END 2017-02-06 11:55 | disposition home or self-care (01) ==
LOC: C.ENDO 07:22
PROVIDERS: ATTEND Internal Medicine
DX: D12.2 Benign neoplasm of ascending colon (principal); Z86.010 Personal history of colon polyps; D12.5 Benign neoplasm of sigmoid colon; K64.8 Other hemorrhoids
CPT/HCPCS: 45388; 88305; J2704

== ENCOUNTER 2017-08-21 07:51 | Day surgery (SDC) | payer MEDICAID ==
[2017-08-21] MEDS ORDERED: Simethicone 40 mg/0.6 ml Liquid (30 ml) ONE (08:17)
[2017-08-21] MEDS ORDERED: Lactated Ringer's 1,000 ML IV ONE (11:00)
[2017-08-21] MEDS ORDERED: Lidocaine Hydrochloride 5 ML INJ ONE (11:11)
[2017-08-21] MEDS ORDERED: Propofol 10 mg/ml Inj (20 ML) ONE (11:11)
[2017-08-21 11:34] VITALS: TEMP 97.3
[2017-08-21 11:45] VITALS: O2SAT 99
[2017-08-21 11:56] VITALS: RESP 12
[2017-08-21 12:50] VITALS: BP 137/85; PULSE 55
== END 2017-08-21 12:40 | disposition home or self-care (01) ==
LOC: C.ENDO 07:51
PROVIDERS: ATTEND Internal Medicine Gastroenterology
DX: K29.50 Unspecified chronic gastritis without bleeding (principal); I10 Essential (primary) hypertension; B19.20 Unspecified viral hepatitis C without hepatic coma; Z86.73 Personal history of transient ischemic attack (TIA), and cerebral infarction without residual deficits
CPT/HCPCS: 43239; 88305; 88342; J2704; J7120

== ENCOUNTER 2018-01-25 13:50 | Inpatient (IN) | payer MEDICAID ==
[2018-01-25 14:22] VITALS: BMI 26.4
--- NOTE | 2018-01-25 14:34 | C.PDOC ---
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 Patient notes she usually has difficulty with walking, but symptoms have worsened over the past couple days. As per her , patient has been dragging her foot, which has prompted this visit. Patient denies fever, chills, chest pain, shortness of breath, vomiting, diarrhea, and dizziness. Chief Complaint (Nursing): Weakness/Neurological Deficit History Per: Patient History/Exam Limitations: no limitations Onset/Duration Of Symptoms: Days (2) Current Symptoms Are (Timing): Still Present Past Medical History Reviewed: Historical Data, Nursing Documentation, Vital Signs Vital Signs: Last Vital Signs Temp 97.6 F 01/25/18 14:18 Pulse 60 01/25/18 14:18 Resp 18 01/25/18 14:18 BP 124/82 01/25/18 14:18 Pulse Ox 98 01/25/18 14:18 - Medical History PMH: Anxiety, CVA, HTN, Hypercholesterolemia, Seizures, TIA Denies: HIV, Pneumonia, Chronic Kidney Disease Surgical History: Endoscopy - [facility] Procedures APHASIA TREATMENT (02/04/15) GAIT TRAINING/FUNCTIONAL AMBULATION TREATMENT (02/04/15) HOME MANAGEMENT TREATMENT (02/04/15) THERAPEUTIC EXERCISE TREATMENT OF MUSCULOSK LOW BACK/LE (02/04/15) THERAPEUTIC EXERCISE TREATMENT OF MUSCULOSK UP BACK/UE (02/04/15) Family History: States: Unknown Family Hx - Social History Hx Alcohol Use: Yes Hx Substance Use: Yes (TOOK METHADONE TODAY) - Immunization History Hx Tetanus Toxoid Vaccination: No Hx Influenza Vaccination: No Hx Pneumococcal Vaccination: No Review Of Systems Constitutional: Negative for: Fever, Chills Cardiovascular: Negative for: Chest Pain Respiratory: Negative for: Shortness of Breath Gastrointestinal: Negative for: Vomiting, Diarrhea Neurological: Positive for: Weakness (right leg ). Negative for: Dizziness Physical Exam - Physical Exam Appears: Non-toxic, No Acute Distress Skin: Normal Color, Warm, Dry Head: Atraumatic, Normacephalic Eye(s): bilateral: Normal Inspection Oral Mucosa: Moist Neck: Supple Chest: Symmetrical, No Deformity, No Tenderness Cardiovascular: Rhythm Regular, No Murmur Respiratory: Normal Breath Sounds, No Rales, No Rhonchi, No Wheezing Gastrointestinal/Abdominal: Soft, No Tenderness, No Guarding, No Rebound Extremity: Normal ROM, Capillary Refill (less than 2 seconds ), No Other (pitting edema ) Neurological/Psych: Oriented x3, Normal Speech, Normal Cognition, Other (no pronator drift. patient is able to lift right leg off the bed, but is unable to hold it up for a long time ) ED Course And Treatment - Laboratory Results Result Diagrams: 01/26/18 11:31 01/26/18 11:31 O2 Sat by Pulse Oximetry: 98 (on RA) Pulse Ox Interpretation: Normal Medical Decision Making Medical Decision Making: Impression: CVA vs. TIA Plan: * bloodwork * CT Head * CXR * EKG * IV Fluids * reassess and disposition Progress: Bloodwork, CT Head, CXR, EKG ordered and reviewed. IV Fluids given. Disposition - Disposition Disposition: HOSPITALIZED Disposition Time: 16:36 Condition: GOOD - Clinical Impression Clinical Impression: Weakness of limb, CVA (cerebrovascular accident) - Scribe Statement The provider has reviewed the documentation as recorded by the Scribe (Kendy Mcnally) Provider Attestation: All medical record entries made by the Scribe were at my direction and personally dictated by me. I have reviewed the chart and agree that the record accurately reflects my personal performance of the history, physical exam, medical decision making, and the department course for this patient. I have also personally directed, reviewed, and agree with the discharge instructions and disposition.
[2018-01-25 15:04] LABS: HEMOGLOBIN 10.2 g/dL (11.0-16.0); MEAN CORPUSCULAR HEMOGLOBIN 26.1 pg (27.0-31.0); MEAN CORPUSCULAR HGB CONC 32.5 g/dL (33.0-37.0); MEAN PLATELET VOLUME 8.4 fL (7.2-11.7); NRBC % 0.1 % (0.0-2.0); PLATELET COUNT 223 K/uL (130-400); RBC 3.91 Mil/uL (3.80-5.20); RED CELL DISTRIBUTION WIDTH 19.3 % (11.5-14.5); WHITE BLOOD COUNT 7.5 K/uL (4.8-10.8)
[2018-01-25 15:12] LABS: LYMPH % 34.1 % (20.0-40.0); NEUT % 56.1 % (50.0-75.0)
[2018-01-25 15:13] LABS: BASO % 0.4 % (0.0-2.0); EOS % 1.6 % (0.0-4.0); MONO % 7.8 % (0.0-10.0)
[2018-01-25 15:14] LABS: LYMPH # 2.6 K/uL (1.0-4.3); NEUT # 4.2 K/uL (1.8-7.0); PROTHROMBIN TIME 10.9 SECONDS (9.7-12.2)
[2018-01-25 15:15] LABS: ALB/GLOB RATIO 1.1 (1.0-2.1); ALT/SGPT 18 U/L (9-52); AST/SGOT 20 U/L (14-36); BLOOD UREA NITROGEN 16 mg/dL (7-17); CALCIUM 8.8 mg/dl (8.6-10.4); EOS # 0.1 K/uL (0.0-0.7); GFR NON-AFRICAN AMERICAN > 60; HDL CHOLESTEROL 47 mg/dL (30-70); MEAN CELL VOLUME 80.3 fL (81.0-99.0); MONO # 0.6 K/uL (0.0-0.8)
[2018-01-25 15:26] LABS: LDL CHOLESTEROL 75 mg/dL (0-129)
[2018-01-25 15:39] LABS: LYMPHOCYTE 27 % (20-40); MONOCYTE 4 % (0-10); NEUTROPHIL 69 % (50-75); PLATELET ESTIMATE NORMAL (NORMAL); TOTAL CELLS COUNTED 100
[2018-01-25 15:40] LABS: ANISOCYTOSIS SLIGHT; HYPOCHROMIC SLIGHT; POLYCHROMIC SLIGHT
--- NOTE | 2018-01-25 15:50 | CT ---
Date of service: 01/25/2018 PROCEDURE: CT HEAD WITHOUT CONTRAST. HISTORY: Code Stroke COMPARISON: 08/07/2016 TECHNIQUE: Axial computed tomography images were obtained through the head/brain without intravenous contrast. Radiation dose: Total exam DLP = 1083.70 mGy-cm. This CT exam was performed using one or more of the following dose reduction techniques: Automated exposure control, adjustment of the mA and/or kV according to patient size, and/or use of iterative reconstruction technique. FINDINGS: HEMORRHAGE: No intracranial hemorrhage. BRAIN: There are severe d chronic microangiopathic changes. There are old infarctions in the genu of the right internal capsule, left periventricular white matter, left caudate head and left anterior basal ganglia. There is no mass, mass effect or abnormal extra-axial fluid collection. There is no territorial infarction. The midline sagittal structures are normal. VENTRICLES: There is mild age-related global parenchymal volume loss and proportionate enlargement of the ventricles and cortical sulci. CALVARIUM: The skull base and calvarium are normal. PARANASAL SINUSES: There is mild mucosal thickening in the left anterior ethmoid air cells. The remaining paranasal sinuses are clear. MASTOID AIR CELLS: Predominantly clear. OTHER FINDINGS: None. IMPRESSION: No acute intracranial abnormality. Severe chronic microangiopathic changes and mild age-related global parenchymal volume loss. Old infarctions in the left jose l frontal white matter, caudate head and anterior basal ganglia.
--- NOTE | 2018-01-25 16:03 | RAD ---
Date of service: 01/25/2018 HISTORY: Code Stroke COMPARISON: No prior. FINDINGS: LUNGS: The lungs are well inflated and clear. PLEURA: No significant pleural effusion identified, no pneumothorax apparent. CARDIOVASCULAR: Normal. OSSEOUS STRUCTURES: No significant abnormalities. VISUALIZED UPPER ABDOMEN: Normal. OTHER FINDINGS: None. IMPRESSION: No active pulmonary disease.
[2018-01-25] MEDS: Sodium Chloride 0.9% 1,000 ML IV SCH (19:16)
[2018-01-26 02:00] VITALS: RESP 20
[2018-01-26] MEDS: Sodium Chloride 0.9% 1,000 ML IV SCH ×2 (03:02→12:15)
[2018-01-26] MEDS ORDERED: IRON PO SCH (10:00)
[2018-01-26] MEDS ORDERED: Bisoprolol-HCTZ 2.5-6.25 mg Tab PO SCH (10:00)
[2018-01-26] MEDS ORDERED: Home Med 1 UNIT (Atorvastatin [Lipitor] 20 MG) PO SCH (10:00)
[2018-01-26] MEDS ORDERED: [UNRECOGNIZED DRUG - OTHER] PO SCH (10:00)
[2018-01-26] MEDS ORDERED: MULTIVIT MIN PO SCH (10:00)
[2018-01-26] MEDS ORDERED: FOLIC ACID PO SCH (10:00)
--- NOTE | 2018-01-26 11:27 | CP.PCM.PN ---
Subjective - Date & Time of Evaluation Date of Evaluation: 01/26/18 Time of Evaluation: 11:24 - Subjective Subjective: pt feels good no dizziness or weekness new only weekness leg from old cva Objective - Vital Signs/Intake and Output Vital Signs (last 24 hours): Temp Pulse Resp BP Pulse Ox 98.2 F 61 20 140/73 98 01/26/18 08:10 01/26/18 08:10 01/26/18 08:10 01/26/18 08:10 01/26/18 08:10 Intake and Output: 01/26/18 01/26/18 06:59 18:59 Intake Total 330 Output Total 0 Balance 330 - Medications Medications: Current Medications Aspirin (Ecotrin) 81 mg PO DAILY [facility] Last Admin: 01/26/18 10:21 Dose: 81 mg Bisoprolol Fumarate/HCTZ (Ziac 2.5-6.25 Mg) 1 tab PO DAILY [facility] Last Admin: 01/26/18 10:22 Dose: 1 tab Escitalopram Oxalate (Lexapro) 10 mg PO DAILY [facility] Last Admin: 01/26/18 10:21 Dose: 10 mg Famotidine (Pepcid) 20 mg PO DAILY [facility] Last Admin: 01/26/18 10:21 Dose: 20 mg Gabapentin (Neurontin) 800 mg PO BID [facility] Last Admin: 01/26/18 10:22 Dose: 800 mg Heparin Sodium (Porcine) (Heparin) 5,000 units SC Q12 [facility] Last Admin: 01/26/18 10:21 Dose: 5,000 units Hydralazine HCl (Apresoline) 25 mg PO Q8 [facility] Last Admin: 01/26/18 05:52 Dose: 25 mg Sodium Chloride (Sodium Chloride 0.9%) 1,000 mls @ 100 mls/hr IV .Q10H [facility] Last Admin: 01/26/18 03:02 Dose: 100 mls/hr Lisinopril (Zestril) 20 mg PO DAILY [facility] Last Admin: 01/26/18 10:21 Dose: 20 mg Methadone HCl (Methadone) 70 mg PO DAILY@0900 [facility] Last Admin: 01/26/18 10:20 Dose: 70 mg Multivitamins/Minerals (Therapeutic-M Tab) 1 tab PO DAILY [facility] Rosuvastatin Calcium (Crestor) 10 mg PO HS [facility] Trazodone HCl (Desyrel) 100 mg PO DAILY [facility] Last Admin: 01/26/18 10:21 Dose: 100 mg - Labs Labs: 01/25/18 15:00 01/25/18 15:00 PT 10.9 SECONDS (9.7-12.2) 01/25/18 15:00 INR 1.0 01/25/18 15:00 APTT 37 SECONDS (21-34) H 01/25/18 15:00 - Constitutional Appears: Non-toxic - Head Exam Head Exam: NORMAL INSPECTION - Eye Exam Eye Exam: Normal appearance Pupil Exam: NORMAL ACCOMODATION - ENT Exam ENT Exam: Mucous Membranes Moist - Neck Exam Neck Exam: Full ROM - Respiratory Exam Respiratory Exam: NORMAL BREATHING PATTERN - Cardiovascular Exam Cardiovascular Exam: REGULAR RHYTHM - GI/Abdominal Exam GI & Abdominal Exam: Normal Bowel Sounds - Rectal Exam Rectal Exam: NORMAL INSPECTION - Exam Exam: NORMAL INSPECTION - Extremities Exam Additional comments: weekness rlext - Back Exam Back Exam: NORMAL INSPECTION - Neurological Exam Neurological Exam: Awake, Oriented x3 - Psychiatric Exam Psychiatric exam: Normal Affect - Skin Skin Exam: Normal Color Assessment and Plan - Assessment and Plan (Free Text) Assessment: c tia old cva Plan: as per orders
[2018-01-26 11:47] LABS: BASO % 0.6 % (0.0-2.0); EOS # 0.1 K/uL (0.0-0.7); EOS % 1.7 % (0.0-4.0); HEMOGLOBIN 9.7 g/dL (11.0-16.0); LYMPH # 1.3 K/uL (1.0-4.3); LYMPH % 24.4 % (20.0-40.0); MEAN CELL VOLUME 81.4 fL (81.0-99.0); MEAN PLATELET VOLUME 8.8 fL (7.2-11.7); MONO # 0.4 K/uL (0.0-0.8); MONO % 7.1 % (0.0-10.0); NEUT # 3.6 K/uL (1.8-7.0); NEUT % 66.2 % (50.0-75.0); RBC 3.72 Mil/uL (3.80-5.20); RED CELL DISTRIBUTION WIDTH 18.9 % (11.5-14.5); WHITE BLOOD COUNT 5.4 K/uL (4.8-10.8)
[2018-01-26 12:33] LABS: ALB/GLOB RATIO 1.1 (1.0-2.1); ALBUMIN 3.4 g/dL (3.5-5.0); ALT/SGPT 22 U/L (9-52); AST/SGOT 21 U/L (14-36); BLOOD UREA NITROGEN 16 mg/dL (7-17); CALCIUM 8.9 mg/dl (8.6-10.4); GFR NON-AFRICAN AMERICAN 51
--- NOTE | 2018-01-26 13:37 | CP.PCM.CON ---
<Tracy Peña - Last Filed: 01/27/18 17:34> History of Present Illness - History of Present Illness History of Present Illness: PGY1 Neurology Consult Note for Dr. Roth This is a 62-year-old female referred to us by Dr. Kebede, who has a past medical history of CVA x2 with residual right lower extremity weakness, HTN, HLD, Hep C, Anxiety, Seizures, and is on methadone due to prior IV heroin abuse. Patient presented to the ED because she went to see her PMD earlier that afternoon who then sent her to get evaluated for frequent falls due to dragging her foot. Patient says she usually has difficulty with walking, but symptoms have worsened over the past couple days. Patient denies fever, chills, chest pain, shortness of breath, vomiting, diarrhea, and dizziness. Review of Systems - Constitutional Constitutional: As Per HPI - EENT Eyes: absent: Blind Spots, Blurred Vision, Change in Vision, Decreased Night Vision, Diplopia, Pain Ears: absent: Decreased Hearing, Disequilibrium Nose/Mouth/Throat: absent: Epistaxis, Sinus Pain, Dysphagia, Hoarsness - Cardiovascular Cardiovascular: absent: Chest Pain, Leg Edema, Lightheadedness - Musculoskeletal Musculoskeletal: Abnormal Gait, Muscle Weakness (left lower extremity, foot drop ). absent: Muscle Cramps, Neck Pain, Numbness, Tingling - Neurological Neurological: Abnormal Speech (risidual aphagia from previous CVA ). absent: Dizziness, Numbness Past Patient History - Infectious Disease Hx of Infectious Diseases: None - Past Medical History & Family History Past Medical History?: Yes - Past Social History Smoking Status: Light Smoker < 10 Cigarettes Daily - CARDIAC Hx Hypercholesterolemia: Yes Hx Hypertension: Yes - PULMONARY Hx Respiratory Disorders: No Hx Pneumonia: No - NEUROLOGICAL Hx Seizures: Yes Hx Transient Ischemic Attacks (TIA): Yes - HEENT Hx HEENT Problems: No - RENAL Hx Chronic Kidney Disease: No - ENDOCRINE/METABOLIC Hx Endocrine Disorders: No - HEMATOLOGICAL/ONCOLOGICAL Hx Blood Disorders: No Hx Human Immunodeficiency Virus (HIV): No - INTEGUMENTARY Hx Dermatological Problems: No - MUSCULOSKELETAL/RHEUMATOLOGICAL Hx Musculoskeletal Disorders: Yes Hx Falls: No Hx Unsteady Gait: Yes Other/Comment: CVA RIGHT SIDED WEAKNESS - GASTROINTESTINAL Hx Gastrointestinal Disorders: Yes Hx Gastroesophageal Reflux: Yes - GENITOURINARY/GYNECOLOGICAL Hx Genitourinary Disorders: Yes Hx Incontinence: Yes (BETTER WITH MEDS PER S.O.) - PSYCHIATRIC Hx Anxiety: Yes Hx Substance Use: Yes (TOOK METHADONE TODAY) - SURGICAL HISTORY Hx Surgeries: Yes Other/Comment: LEFT SIDE FACE CYST REMOVED - ANESTHESIA Hx Anesthesia: Yes Hx Anesthesia Reactions: No (unknown) Hx Malignant Hyperthermia: No Meds Allergies/Adverse Reactions: Allergies Allergy/AdvReac Type Severity Reaction Status Date / Time No Known Allergies Allergy Verified 01/25/18 14:25 - Medications Medications: Current Medications Aspirin (Ecotrin) 81 mg PO DAILY [facility] Last Admin: 01/26/18 10:21 Dose: 81 mg Bisoprolol Fumarate/HCTZ (Ziac 2.5-6.25 Mg) 1 tab PO DAILY [facility] Last Admin: 01/26/18 10:22 Dose: 1 tab Escitalopram Oxalate (Lexapro) 10 mg PO DAILY [facility] Last Admin: 01/26/18 10:21 Dose: 10 mg Famotidine (Pepcid) 20 mg PO DAILY [facility] Last Admin: 01/26/18 10:21 Dose: 20 mg Gabapentin (Neurontin) 800 mg PO BID [facility] Last Admin: 01/26/18 10:22 Dose: 800 mg Heparin Sodium (Porcine) (Heparin) 5,000 units SC Q12 [facility] Last Admin: 01/26/18 10:21 Dose: 5,000 units Hydralazine HCl (Apresoline) 25 mg PO Q8 [facility] Last Admin: 01/26/18 05:52 Dose: 25 mg Sodium Chloride (Sodium Chloride 0.9%) 1,000 mls @ 100 mls/hr IV .Q10H [facility] Last Admin: 01/26/18 12:15 Dose: Not Given Lisinopril (Zestril) 20 mg PO DAILY [facility] Last Admin: 01/26/18 10:21 Dose: 20 mg Methadone HCl (Methadone) 70 mg PO DAILY@0900 [facility] Last Admin: 01/26/18 10:20 Dose: 70 mg Multivitamins/Minerals (Therapeutic-M Tab) 1 tab PO DAILY [facility] Rosuvastatin Calcium (Crestor) 10 mg PO HS [facility] Trazodone HCl (Desyrel) 100 mg PO DAILY [facility] Last Admin: 01/26/18 10:21 Dose: 100 mg Physical Exam - Constitutional Appears: Non-toxic, No Acute Distress - Head Exam Head Exam: ATRAUMATIC, NORMAL INSPECTION, NORMOCEPHALIC - Eye Exam Eye Exam: Normal appearance, Nystagmus (left lateral gaze present. ), PERRL. absent: Conjunctival injection, Periorbital tenderness Pupil Exam: NORMAL ACCOMODATION - ENT Exam ENT Exam: Mucous Membranes Moist, Normal Exam - Cardiovascular Exam Cardiovascular Exam: RRR - Extremities Exam Extremities exam: Negative for: full ROM (decreased active range of motion with right lower extremity flexion), tenderness - Neurological Exam Neurological exam: Abnormal Gait, Alert, CN II-XII Intact, Oriented x3, Reflexes Normal - Expanded Neurological Exam Expanded Patient oriented to: person, place, time Cranial nerves: EOM's Intact: Normal, Facial Palsey w/Forehead Movement: Normal, Facial Palsey w/o Forehead Movement: Normal, Facial Sensation: Normal, Gag Reflex: Normal, Nystagmus: Abnormal Left (left lateral gaze ), Tongue Deviation: Normal Cerebellar Function: Finger to Nose: Abnormal Right Upper motor neuron: Babinski Sign: Normal, Geo Neglect: Normal, Pronator Drift: Abnormal Right Neuro motor strength exam: Left Upper Extremity: 5, Right Upper Extremity: 5, Left Lower Extremity: 5, Right Lower Extremity: 4 DTR: Patellar Left: 2+, Patellar Right: 2+ - Psychiatric Exam Psychiatric exam: Normal Affect, Normal Mood Results - Vital Signs Recent Vital Signs: Last Vital Signs Temp 98.2 F 01/26/18 08:10 Pulse 61 01/26/18 08:10 Resp 20 01/26/18 08:10 BP 140/73 01/26/18 08:10 Pulse Ox 98 01/26/18 08:10 - Labs Result Diagrams: 01/26/18 11:31 01/26/18 11:31 Labs: Laboratory Results - last 24 hr 01/25/18 01/25/18 01/25/18 14:17 14:23 15:00 WBC 7.5 RBC 3.91 Hgb 10.2 L Hct 31.4 L MCV 80.3 L D MCH 26.1 L MCHC 32.5 L RDW 19.3 H Plt Count 223 MPV 8.4 Neut % (Auto) 56.1 Lymph % (Auto) 34.1 Larue % (Auto) 7.8 Eos % (Auto) 1.6 Baso % (Auto) 0.4 Neut # (Auto) 4.2 Lymph # (Auto) 2.6 Larue # (Auto) 0.6 Eos # (Auto) 0.1 Baso # (Auto) 0.0 Neutrophils % (Manual) 69 Lymphocytes % (Manual) 27 Monocytes % (Manual) 4 Platelet Estimate Normal Polychromasia Slight Hypochromasia (manual) Slight Anisocytosis (manual) Slight PT INR APTT Sodium Potassium Chloride Carbon Dioxide Anion Gap BUN Creatinine Est GFR ( Amer) Est GFR (Non-Af Amer) POC Glucose (mg/dL) 77 80 Random Glucose Hemoglobin A1c Calcium Total Bilirubin AST ALT Alkaline Phosphatase Troponin I Total Protein Albumin Globulin Albumin/Globulin Ratio Triglycerides Cholesterol LDL Cholesterol Direct HDL Cholesterol Blood Type Antibody Screen 01/25/18 01/25/18 01/25/18 15:00 15:00 15:00 WBC RBC Hgb Hct MCV MCH MCHC RDW Plt Count MPV Neut % (Auto) Lymph % (Auto) Larue % (Auto) Eos % (Auto) Baso % (Auto) Neut # (Auto) Lymph # (Auto) Larue # (Auto) Eos # (Auto) Baso # (Auto) Neutrophils % (Manual) Lymphocytes % (Manual) Monocytes % (Manual) Platelet Estimate Polychromasia Hypochromasia (manual) Anisocytosis (manual) PT 10.9 INR 1.0 APTT 37 H Sodium 140 Potassium 3.8 Chloride 106 Carbon Dioxide 26 Anion Gap 12 BUN 16 Creatinine 0.9 Est GFR ( Amer) > 60 Est GFR (Non-Af Amer) > 60 POC Glucose (mg/dL) Random Glucose 95 Hemoglobin A1c 5.7 Calcium 8.8 Total Bilirubin 0.4 AST 20 ALT 18 Alkaline Phosphatase 101 Troponin I < 0.0120 Total Protein 7.6 Albumin 4.0 Globulin 3.6 Albumin/Globulin Ratio 1.1 Triglycerides 129 D Cholesterol 154 LDL Cholesterol Direct 75 HDL Cholesterol 47 Blood Type Antibody Screen 01/25/18 01/26/18 01/26/18 15:03 06:29 11:23 WBC RBC Hgb Hct MCV MCH MCHC RDW Plt Count MPV Neut % (Auto) Lymph % (Auto) Larue % (Auto) Eos % (Auto) Baso % (Auto) Neut # (Auto) Lymph # (Auto) Larue # (Auto) Eos # (Auto) Baso # (Auto) Neutrophils % (Manual) Lymphocytes % (Manual) Monocytes % (Manual) Platelet Estimate Polychromasia Hypochromasia (manual) Anisocytosis (manual) PT INR APTT Sodium Potassium Chloride Carbon Dioxide Anion Gap BUN Creatinine Est GFR ( Amer) Est GFR (Non-Af Amer) POC Glucose (mg/dL) 80 87 Random Glucose Hemoglobin A1c Calcium Total Bilirubin AST ALT Alkaline Phosphatase Troponin I Total Protein Albumin Globulin Albumin/Globulin Ratio Triglycerides Cholesterol LDL Cholesterol Direct HDL Cholesterol Blood Type O POSITIVE Antibody Screen Negative 01/26/18 01/26/18 11:31 11:31 WBC 5.4 RBC 3.72 L Hgb 9.7 L Hct 30.2 L MCV 81.4 MCH 26.0 L MCHC 32.0 L RDW 18.9 H Plt Count 211 MPV 8.8 Neut % (Auto) 66.2 Lymph % (Auto) 24.4 Larue % (Auto) 7.1 Eos % (Auto) 1.7 Baso % (Auto) 0.6 Neut # (Auto) 3.6 Lymph # (Auto) 1.3 Larue # (Auto) 0.4 Eos # (Auto) 0.1 Baso # (Auto) 0.0 Neutrophils % (Manual) Lymphocytes % (Manual) Monocytes % (Manual) Platelet Estimate Polychromasia Hypochromasia (manual) Anisocytosis (manual) PT INR APTT Sodium 142 Potassium 5.2 Chloride 108 H Carbon Dioxide 26 Anion Gap 12 BUN 16 Creatinine 1.1 Est GFR ( Amer) > 60 Est GFR (Non-Af Amer) 51 POC Glucose (mg/dL) Random Glucose 102 Hemoglobin A1c Calcium 8.9 Total Bilirubin 0.4 AST 21 ALT 22 Alkaline Phosphatase 88 Troponin I Total Protein 6.6 Albumin 3.4 L Globulin 3.2 Albumin/Globulin Ratio 1.1 Triglycerides Cholesterol LDL Cholesterol Direct HDL Cholesterol Blood Type Antibody Screen Assessment & Plan - Assessment and Plan (Free Text) Assessment: This is a 62-year-old female referred to us by Dr. Kebede, who has a past medical history of CVA x2 with residual right lower extremity weakness, HTN, HLD, Hep C, Anxiety, Seizures, and is on methadone due to prior IV heroin abuse. Right lower extremity weakness - Continue PT for evaluation and treatment - Head CT without contrast: no acute intracranial abnormality. Severe chronic microangiopathic changes and mild age related global parenchymal volume loss. Old infarctions in left jose l frontal white matter, caudate head and anterior basal ganglia. - Continue ASA 81mg daily Patient seen and case discussed with Dr. Roth. Thank you for allowing us to participate in the care of the above named patient. Tracy Peña PGY1 <Hernán Roth - Last Filed: 02/03/18 10:17> Results - Vital Signs Recent Vital Signs: Last Vital Signs Temp 98.5 F 01/26/18 16:00 Pulse 60 01/26/18 16:00 Resp 20 01/26/18 16:00 BP 131/68 01/26/18 16:00 Pulse Ox 98 01/31/18 17:37 - Labs Result Diagrams: 01/26/18 11:31 01/26/18 11:31 Attending/Attestation - Attestation I have personally seen and examined this patient.: Yes I have fully participated in the care of the patient.: Yes I have reviewed all pertinent clinical information: Yes Notes (Text): 02/03/18 10:16 I agree with the assessment and plan. Right lower extremity weakness likely due to resurgence of previous stroke symptoms. Will continue work-up as planned.
--- NOTE | 2018-01-26 15:09 | CP.PCM.PN ---
Subjective - Date & Time of Evaluation Date of Evaluation: 01/26/18 Time of Evaluation: 15:09 - Subjective Subjective: PATIENT SEEN AND EXAMINED AT THE BEDSIDE Objective - Vital Signs/Intake and Output Vital Signs (last 24 hours): Temp Pulse Resp BP Pulse Ox 98.2 F 61 20 140/73 98 01/26/18 08:10 01/26/18 08:10 01/26/18 08:10 01/26/18 08:10 01/26/18 08:10 Intake and Output: 01/26/18 01/26/18 06:59 18:59 Intake Total 330 Output Total 0 Balance 330 - Medications Medications: Current Medications Aspirin (Ecotrin) 81 mg PO DAILY [facility] Last Admin: 01/26/18 10:21 Dose: 81 mg Bisoprolol Fumarate/HCTZ (Ziac 2.5-6.25 Mg) 1 tab PO DAILY [facility] Last Admin: 01/26/18 10:22 Dose: 1 tab Escitalopram Oxalate (Lexapro) 10 mg PO DAILY [facility] Last Admin: 01/26/18 10:21 Dose: 10 mg Famotidine (Pepcid) 20 mg PO DAILY [facility] Last Admin: 01/26/18 10:21 Dose: 20 mg Gabapentin (Neurontin) 800 mg PO BID [facility] Last Admin: 01/26/18 10:22 Dose: 800 mg Heparin Sodium (Porcine) (Heparin) 5,000 units SC Q12 [facility] Last Admin: 01/26/18 10:21 Dose: 5,000 units Hydralazine HCl (Apresoline) 25 mg PO Q8 [facility] Last Admin: 01/26/18 14:06 Dose: 25 mg Sodium Chloride (Sodium Chloride 0.9%) 1,000 mls @ 100 mls/hr IV .Q10H [facility] Last Admin: 01/26/18 12:15 Dose: Not Given Lisinopril (Zestril) 20 mg PO DAILY [facility] Last Admin: 01/26/18 10:21 Dose: 20 mg Methadone HCl (Methadone) 70 mg PO DAILY@0900 [facility] Last Admin: 01/26/18 10:20 Dose: 70 mg Multivitamins/Minerals (Therapeutic-M Tab) 1 tab PO DAILY [facility] Rosuvastatin Calcium (Crestor) 10 mg PO HS [facility] Trazodone HCl (Desyrel) 100 mg PO DAILY [facility] Last Admin: 01/26/18 10:21 Dose: 100 mg - Labs Labs: 01/26/18 11:31 01/26/18 11:31 PT 10.9 SECONDS (9.7-12.2) 01/25/18 15:00 INR 1.0 01/25/18 15:00 APTT 37 SECONDS (21-34) H 01/25/18 15:00 Assessment and Plan - Assessment and Plan (Free Text) Assessment: FOLLOW UP WITH DR CROOKS IN 1-21 WEEK ----CALL FOR APPOINTMENT FOLLOW UP WITH DR PIERCE OR YOUR OWN NEUROLOGIST----CALL FOR APPOINTMENT CONTINUE HOME MEDICATION ACTIVITY TOLERATED CALL DR CROOKS OR GO TO THE EMERGENCY ROOM IF SYMPTOM RETURN OR WORSENING DISCUSS WITH PATIENT WHO AGREE AND VERBALIZED UNDERSTANDING
--- NOTE | 2018-01-26 15:29 | CARD ---
APPROVED REPORT Date of service: 01/25/2018 EKG Measurement Heart [id number] <Conclusion> Junctional rhythm Nonspecific ST abnormality Abnormal ECG
[2018-01-26 16:33] VITALS: BP 131/68; PULSE 60; TEMP 98.5
[2018-01-27] MEDS ORDERED: Multivitamin With Minerals Tab PO SCH (10:00)
[2018-01-31 17:35] VITALS: O2SAT 98
== END 2018-01-26 16:47 | disposition home or self-care (01) | DRG 861 ==
LOC: C.ER 13:50 → C.9E 16:36 → C.6T 01-26 00:55 → C.9E 01-26 00:55 → C.5S 01-26 01:47
PROVIDERS: ADMIT Internal Medicine; ATTEND Internal Medicine
DX: R53.1 Weakness (principal); R56.9 Unspecified convulsions; F11.20 Opioid dependence, uncomplicated; B19.20 Unspecified viral hepatitis C without hepatic coma; I69.351 Hemiplegia and hemiparesis following cerebral infarction affecting right dominant side; E78.00 Pure hypercholesterolemia, unspecified; I10 Essential (primary) hypertension; F17.210 Nicotine dependence, cigarettes, uncomplicated; K21.9 Gastro-esophageal reflux disease without esophagitis; R26.81 Unsteadiness on feet; I73.9 Peripheral vascular disease, unspecified; F41.9 Anxiety disorder, unspecified; Z91.81 History of falling